=== PATIENT | male | born 1965 | race Hispanic/Latino ===

== ENCOUNTER → 2018-04-03 | Outpatient (CLI) | payer SELFPAY | LOC: GMAJ 11:03 | PROVIDERS: ATTEND Family Medicine | DX: Z00.00 Encounter for general adult medical examination without abnormal findings (principal) ==

== ENCOUNTER 2018-04-11 05:42 | Day surgery (SDC) | payer BC, OTHER ==
[2018-04-11] MEDS ORDERED: LIDOCAINE 1% 10 ML VIAL INJ ONE (07:00)
[2018-04-11] MEDS ORDERED: PROPOFOL 200 MG/20 ML VIAL IV ONE (07:00)
[2018-04-11] MEDS ORDERED: LACTATED RINGERS 1,000 ML ONE (12:37)
[2018-04-11 14:46] VITALS: BP 99/59; TEMP 96.4; O2SAT 97
--- NOTE | 2018-04-12 08:27 | OP ---
DATE OF PROCEDURE: 04/11/18 PREPROCEDURE DIAGNOSIS: 1. Colorectal cancer screening. POSTPROCEDURE DIAGNOSIS: 1. Suboptimal bowel preparation. 2. Cecal polyp. 3. Internal hemorrhoids. PROCEDURE: 1. Colonoscopy. SURGEON: Nicolas Nesbitt MD COMPLICATIONS: No immediate complications. SEDATION: The patient was sedated via IV propofol by the Anesthesia Department. CONSENT: Prior to the procedure, risks, benefits and alternatives to the therapy were discussed with the patient. The risks included bleeding, infection , perforation and . The patient agreed to the procedure and signed a consent. PREPROCEDURE ANESTHESIA ASSESSMENT: An examination revealed no contraindication to sedation. Airway examination demonstrated a Mallampati class type 2, ASA grade assessment type 2. Throughout the procedure, the patient's blood pressure, pulse and oxygen saturation were monitored continuously. PROCEDURE: The patient was placed in the left lateral decubitus position and a rectal examination was performed. The rectal examination was within normal limits. The Olympus colonoscope was passed in the anus, rectum, traversing the colon to the level of the cecum as identified by the appendiceal orifice. The scope was retracted and the mucosa was visualized. The entirety of the exam was performed under direct visualization. Preparation quality was suboptimal. The withdrawal time was greater than 6 minutes. The patient tolerated the procedure well. FINDINGS: 1. Moderate to large amount of semi-liquid stool was seen throughout the colon, coating the colonic tracy, predominantly on the right colon. Copious amount of sterile fluid was utilized for lavage with only poor to suboptimal visualization of the colonic mucosa. 2. A small, 5-mm colonic polyp that was sessile was seen in the cecum. This was removed using the cold snare and completely retrieved. 3. Small, non-bleeding internal hemorrhoids were seen in retroflexion in the rectum. RECOMMENDATION: 1. Return the patient home. 2. Resume previous diet. 3. Repeat colonoscopy no later than one year due to suboptimal bowel preparation. 4. Followup pathology results. 5. Return to referring provider. 6. Followup in my office p.r.n. 7. The findings were discussed with the patient and family member. #[id number] [facility]OSPITALJeffrey
== END 2018-04-11 15:10 | disposition home or self-care (01) ==
LOC: AMB 05:42
PROVIDERS: ATTEND Internal Medicine Gastroenterology
DX: Z12.11 Encounter for screening for malignant neoplasm of colon (principal); D12.0 Benign neoplasm of cecum; K64.8 Other hemorrhoids; E03.9 Hypothyroidism, unspecified; Z79.899 Other long term (current) drug therapy
CPT/HCPCS: 00812; 45385; J3490; J7120

== ENCOUNTER → 2019-03-28 | Outpatient (CLI) | payer BC | LOC: GMAJ 16:57 | PROVIDERS: ATTEND Family Medicine | DX: E03.9 Hypothyroidism, unspecified (principal) ==